=== PATIENT | female | born 1985 | race Caucasian/White ===

== ENCOUNTER 2016-04-23 08:54 | Emergency (ER) | payer OTHER, SELFPAY ==
--- NOTE | 2016-04-23 09:59 | EDDOCDS ---
Nurse's Notes [facility] Name: Melissa Mendoza Age: 30 yrs Sex: Female : 1985 Arrival Date: 04/23/2016 Time: 08:54 Bed Family 1 Private MD: NO PRIMARY PHYSICIAN, . Diagnosis: Conjunctivitis Presentation: 04/23 09:03 Presenting complaint: Patient states: Pt presents stating onset of bilateral itchy and dls burning with crusty drainage last night children have same sx. Mechanism of Injury: No Mechanism of Injury. The patient denies any loss of vision. Adult Sepsis Screening: The patient does not have new or worsening altered mentation. Patient's respiratory rate is less than 22. Systolic blood pressure is greater than 100. Patient has a qSOFA score of 0- Negative Sepsis Screen. Suicide/Homicide risk assessment- the patient denies having any suicidal and/or homicidal ideations and does not present with any other emotional, behavioral or mental health complaints. 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 Transition of care: patient was not received from another setting of care. 09:03 Acuity: SUJATA Level 4 dls 09:03 Method Of Arrival: Walkin/Carried/Asstd dls Triage Assessment: 09:05 General: Appears in no apparent distress, well developed, well nourished, well groomed, dls Behavior is cooperative. Pain: Denies pain. HIV screening NA for this visit Offered previously. EENT: Reports bilateral eye irritation. PICKER: 09:05 LMP 04/07/2016 dls Historical: - Allergies: Bactrim; - Home Meds: 1. none - PMHx: none; - PSHx: Tonsillectomy; Adenoidectomy; - Social history: Smoking status: Patient uses tobacco products, light tobacco smoker. No barriers to communication noted, The patient speaks fluent Luxembourgish. - Family history: Not pertinent. - : The pt / caregiver states he / she is not on anticoagulants. Home medication list is obtained from the patient. - Exposure Risk Screening:: None identified. Recent exposure to. Screenin:55 Screening information is obtained from the patient. Fall risk: No risks identified. dsf Assistance ADL's: requires no assistance with activities of daily living. Abuse/DV Screen: The patient / caregiver reports he/she is: not in a situation that causes fear, pain or injury. Nutritional screening: No deficits noted. Advance Directives: Currently, there is no health care proxy. home support is adequate. Assessment: 09:55 General: Appears in no apparent distress, comfortable, Behavior is appropriate for age, dsf cooperative. Neurological: Level of Consciousness is awake, alert. Neurological: EENT: Eyes clear. Sclera/Cornea are clear in left and right eye. Cardiovascular: No deficits noted. Respiratory: No deficits noted. Derm: Skin is pink, warm & dry. Vital Signs: 08:56 BP 144 / 84; Pulse 90; Resp 18; Temp 97.6(O); Pulse Ox 99% on R/A; Weight 69.85 kg (R); ct3 Height 4 ft. 10 in. (147.32 cm) (R); Pain 0/10; 08:56 Body Mass Index 32.19 (69.85 kg, 147.32 cm) ct3 Vitals: 08:56 Log In Time: April 23, 2016 at 08:53. ct3 Visual Acuity: 09:57 ; deffered by provider dsf ED Course: 08:55 Patient visited by Maura Lake PCA. ct3 08:55 Patient moved to Waiting ct3 08:56 NO PRIMARY PHYSICIAN, . is Private Physician. ct3 08:57 Patient moved to Pre RCE ct3 09:04 Triage Initiated dls 09:09 Dale Trinidad PA-C is PHCP. cc10 09:09 Brooke Marcos MD is Attending Physician. cc10 09:17 Patient moved to Family 1 dls 09:30 Patient visited by Dale Trinidad PA-C. cc10 09:30 Patient visited by Dale Trinidad PA-C. cc10 09:38 [facility] is Referral Physician. cc10 09:57 The patient / caregiver is instructed regarding the plan of care and ED course. dsf 09:57 No IV's were initiated during this patient's visit. No procedures done that require dsf assistance. Order Results: There are currently no results for this order. Outcome: 09:39 Discharge ordered by Provider. cc10 09:57 Discharge Assessment: Patient awake, alert and oriented x 3. No cognitive and/or dsf functional deficits noted. Patient verbalized understanding of disposition instructions. patient administered narcotics - no. The following High Risk Discharge criteria are identified: None. Discharged to home ambulatory. Condition: stable. Discharge instructions given to patient, Instructed on discharge instructions, follow up and referral plans. medication usage, Demonstrated understanding of instructions, medications, Pt was receptive of discharge instructions/ teaching. Prescriptions given X 1, Work note provided to patient. No special radiology studies were completed. Property :Personal belongings accompany Pt. 09:58 Patient left the ED. f Signatures: Nicole Martinez RN RN [facility] Maura Lake, RASHIDA RUBBER PRODUCTION MACHINE OPERATOR ct3 Arminda Vazquez RN RN dsf Coniski, Colin, PA-C PA-C cc10 MTDD
--- NOTE | 2016-04-23 09:59 | EDDOCDS ---
Physician Documentation [facility] Name: Melissa Mendoza Age: 30 yrs Sex: Female : 1985 Arrival Date: 04/23/2016 Time: 08:54 Bed Family 1 Private MD: NO PRIMARY PHYSICIAN, . Disposition: 04/23/16 09:39 Discharged to Home/Self Care. Impression: Conjunctivitis. - Condition is Stable. - Discharge Instructions: Eye - Viral Conjunctivitis. - Prescriptions for Naphcon- A 0.025-0.3 % Ophthalmic Drops - instill 1 drop by OPHTHALMIC route 2-4 times daily; 1 bottle. - Medication Reconciliation, Work Release Form - 1 day form. - Follow up: Emergency Department; When: As needed. Follow up: [facility]; When: Call to arrange an appointment; Reason: Recheck today's complaints, Continuance of care, To establish care. - Problem is new. - Symptoms are unchanged. Historical: - Allergies: Bactrim; - Home Meds: 1. none - PMHx: none; - PSHx: Tonsillectomy; Adenoidectomy; - Social history: Smoking status: Patient uses tobacco products, light tobacco smoker. No barriers to communication noted, The patient speaks fluent Yakut. - Family history: Not pertinent. - : The pt / caregiver states he / she is not on anticoagulants. Home medication list is obtained from the patient. - Exposure Risk Screening:: None identified. Recent exposure to. RN VISITING: 04/23 09:05 LMP 04/07/2016 dls Vital Signs: 08:56 BP 144 / 84; Pulse 90; Resp 18; Temp 97.6(O); Pulse Ox 99% on R/A; Weight 69.85 kg / ct3 153.99 lbs (R); Height 4 ft. 10 in. (147.32 cm) (R); Pain 0/10; 08:56 Body Mass Index 32.19 (69.85 kg, 147.32 cm) ct3 Visual Acuity: 09:57 ; deffered by provider hitesh MDM: 09:41 Financial registration complete. lg Signatures: Nicole Martinez RN RN dls Maxx Bird, Juan Reg Arminda Gray RN RN dsf Dale Trinidad PA-C PA-C cc10 MTDD
--- NOTE | 2016-04-25 10:59 | EDDOCDS ---
Physician Documentation [facility] Name: Melissa Downey Age: 30 yrs Sex: Female : 1985 Arrival Date: 04/23/2016 Time: 08:54 Bed Family 1 Private MD: NO PRIMARY PHYSICIAN, . Disposition: 04/23/16 09:39 Discharged to Home/Self Care. Impression: Conjunctivitis. - Condition is Stable. - Discharge Instructions: Eye - Viral Conjunctivitis. - Prescriptions for Naphcon- A 0.025-0.3 % Ophthalmic Drops - instill 1 drop by OPHTHALMIC route 2-4 times daily; 1 bottle. - Medication Reconciliation, Work Release Form - 1 day form. - Follow up: Emergency Department; When: As needed. Follow up: [facility]; When: Call to arrange an appointment; Reason: Recheck today's complaints, Continuance of care, To establish care. - Problem is new. - Symptoms are unchanged. Historical: - Allergies: Bactrim; - Home Meds: 1. none - PMHx: none; - PSHx: Tonsillectomy; Adenoidectomy; - Social history: Smoking status: Patient uses tobacco products, light tobacco smoker. No barriers to communication noted, The patient speaks fluent Indonesian. - Family history: Not pertinent. - : The pt / caregiver states he / she is not on anticoagulants. Home medication list is obtained from the patient. - Exposure Risk Screening:: None identified. Recent exposure to. CT MRI TECHNOLOGIST: 04/23 09:05 LMP 04/07/2016 dls Vital Signs: 08:56 BP 144 / 84; Pulse 90; Resp 18; Temp 97.6(O); Pulse Ox 99% on R/A; Weight 69.85 kg / ct3 153.99 lbs (R); Height 4 ft. 10 in. (147.32 cm) (R); Pain 0/10; 08:56 Body Mass Index 32.19 (69.85 kg, 147.32 cm) ct3 Visual Acuity: 09:57 ; deffered by provider dsf MDM: 09:41 Financial registration complete. lg 12:10 [facility] Payment Agreement was scanned into [employer] and attached to record. lg 04/24 11:39 T-Sheet-- Draft Copy was scanned into [employer] and attached to record. gb Signatures: Nicole Martinez, RN RN dls Yesenia Meehan, Reg Reg gb Maxx Bird, Reg Reg lg Arminda Vazquez RN RN dsf Coniski, Colin, MIGUEL PAPatricia cc10 The chart was reviewed and I authenticate all verbal orders and agree with the evaluation and treatment provided.Attachments: 04/23 12:10 [facility] [place] Agreement lg 04/24 11:39 T-Sheet-- Draft Copy gb Chart Complete MTDD
--- NOTE | 2016-04-25 10:59 | EDDOCDS ---
Physician Documentation [facility] Name: Melissa Downey Age: 30 yrs Sex: Female : 1985 Arrival Date: 04/23/2016 Time: 08:54 Bed Family 1 Private MD: NO PRIMARY PHYSICIAN, . Disposition: 04/23/16 09:39 Discharged to Home/Self Care. Impression: Conjunctivitis. - Condition is Stable. - Discharge Instructions: Eye - Viral Conjunctivitis. - Prescriptions for Naphcon- A 0.025-0.3 % Ophthalmic Drops - instill 1 drop by OPHTHALMIC route 2-4 times daily; 1 bottle. - Medication Reconciliation, Work Release Form - 1 day form. - Follow up: Emergency Department; When: As needed. Follow up: [facility]; When: Call to arrange an appointment; Reason: Recheck today's complaints, Continuance of care, To establish care. - Problem is new. - Symptoms are unchanged. Historical: - Allergies: Bactrim; - Home Meds: 1. none - PMHx: none; - PSHx: Tonsillectomy; Adenoidectomy; - Social history: Smoking status: Patient uses tobacco products, light tobacco smoker. No barriers to communication noted, The patient speaks fluent Khmer. - Family history: Not pertinent. - : The pt / caregiver states he / she is not on anticoagulants. Home medication list is obtained from the patient. - Exposure Risk Screening:: None identified. Recent exposure to. 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 10 in. (147.32 cm) (R); Pain 0/10; 08:56 Body Mass Index 32.19 (69.85 kg, 147.32 cm) ct3 Visual Acuity: 09:57 ; deffered by provider dsf MDM: 09:41 Financial registration complete. lg 12:10 [facility] Payment Agreement was scanned into [employer] and attached to record. lg 04/24 11:39 T-Sheet-- Draft Copy was scanned into [employer] and attached to record. gb Signatures: Nicole Martinez, RN RN dls Yesenia Meehan, Reg Reg gb Maxx Bird, Reg Reg lg Arminda Vazquez RN RN dsf Coniski, Colin, MIGUEL PAPatricia cc10 The chart was reviewed and I authenticate all verbal orders and agree with the evaluation and treatment provided.Attachments: 04/23 12:10 [facility] [place] lg 04/24 11:39 T-Sheet-- Draft Copy gb Chart Complete MTDD
--- NOTE | 2016-04-25 10:59 | EDDOCDS ---
Nurse's Notes [facility] Name: Melissa Downey Age: 30 yrs Sex: Female : 1985 Arrival Date: 04/23/2016 Time: 08:54 Bed Family 1 Private MD: NO PRIMARY PHYSICIAN, . Diagnosis: Conjunctivitis Presentation: 04/23 09:03 Presenting complaint: Patient states: Pt presents stating onset of bilateral itchy and dls burning with crusty drainage last night children have same sx. Mechanism of Injury: No Mechanism of Injury. The patient denies any loss of vision. Adult Sepsis Screening: The patient does not have new or worsening altered mentation. Patient's respiratory rate is less than 22. Systolic blood pressure is greater than 100. Patient has a qSOFA score of 0- Negative Sepsis Screen. Suicide/Homicide risk assessment- the patient denies having any suicidal and/or homicidal ideations and does not present with any other emotional, behavioral or mental health complaints. Status: Patient is not a emergency medical service coordinator or dependent. Transition of care: patient was not received from another setting of care. 09:03 Acuity: SUJATA Level 4 dls 09:03 Method Of Arrival: Walkin/Carried/Asstd dls Triage Assessment: 09:05 General: Appears in no apparent distress, well developed, well nourished, well groomed, dls Behavior is cooperative. Pain: Denies pain. HIV screening NA for this visit Offered previously. EENT: Reports bilateral eye irritation. 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 none - PMHx: none; - PSHx: Tonsillectomy; Adenoidectomy; - Social history: Smoking status: Patient uses tobacco products, light tobacco smoker. No barriers to communication noted, The patient speaks fluent Anguillan. - Family history: Not pertinent. - : The pt / caregiver states he / she is not on anticoagulants. Home medication list is obtained from the patient. - Exposure Risk Screening:: None identified. Recent exposure to. Screenin:55 Screening information is obtained from the patient. Fall risk: No risks identified. dsf Assistance ADL's: requires no assistance with activities of daily living. Abuse/DV Screen: The patient / caregiver reports he/she is: not in a situation that causes fear, pain or injury. Nutritional screening: No deficits noted. Advance Directives: Currently, there is no health care proxy. home support is adequate. Assessment: 09:55 General: Appears in no apparent distress, comfortable, Behavior is appropriate for age, dsf cooperative. Neurological: Level of Consciousness is awake, alert. Neurological: EENT: Eyes clear. Sclera/Cornea are clear in left and right eye. Cardiovascular: No deficits noted. Respiratory: No deficits noted. Derm: Skin is pink, warm & dry. Vital Signs: 08:56 BP 144 / 84; Pulse 90; Resp 18; Temp 97.6(O); Pulse Ox 99% on R/A; Weight 69.85 kg (R); ct3 Height 4 ft. 10 in. (147.32 cm) (R); Pain 0/10; 08:56 Body Mass Index 32.19 (69.85 kg, 147.32 cm) ct3 Vitals: 08:56 Log In Time: April 23, 2016 at 08:53. ct3 Visual Acuity: 09:57 ; deffered by provider dsf ED Course: 08:55 Patient visited by Maura Lake PCA. ct3 08:55 Patient moved to Waiting ct3 08:56 NO PRIMARY PHYSICIAN, . is Private Physician. ct3 08:57 Patient moved to Pre RCE ct3 09:04 Triage Initiated dls 09:09 Dale Trinidad PA-C is PHCP. cc10 09:09 Brooke Marcos MD is Attending Physician. cc10 09:17 Patient moved to Family 1 dls 09:30 Patient visited by Dale Trinidad PA-C. cc10 09:30 Patient visited by Dale Trinidad PA-C. cc10 09:38 [facility] is Referral Physician. cc10 09:57 The patient / caregiver is instructed regarding the plan of care and ED course. dsf 09:57 No IV's were initiated during this patient's visit. No procedures done that require dsf assistance. 11:54 Patient name changed from Melissa\S\\S\Reji\S\ to Melissa\S\ \S\Downey. EDMS 12:10 [facility] Payment Agreement was scanned into [employer] and attached to record. lg 12:35 Patient name changed from Melissa\S\ \S\Downey\S\ to Melissa\S\Tre\S\Downey. EDMS 04/24 11:39 T-Sheet-- Draft Copy was scanned into [employer] and attached to record. 15:09 Patient name changed from Melissa\S\Tre\S\Downey\S\ to Aspen\S\Tre\S\Downey. EDMS 04/25 07:34 Patient name changed from Aspen\S\Tre\S\Doweny\S\ to Melissa\S\Tre\S\Downey. EDMS Order Results: There are currently no results for this order. Outcome: 04/23 09:39 Discharge ordered by Provider. cc10 09:57 Discharge Assessment: Patient awake, alert and oriented x 3. No cognitive and/or dsf functional deficits noted. Patient verbalized understanding of disposition instructions. patient administered narcotics - no. The following High Risk Discharge criteria are identified: None. Discharged to home ambulatory. Condition: stable. Discharge instructions given to patient, Instructed on discharge instructions, follow up and referral plans. medication usage, Demonstrated understanding of instructions, medications, Pt was receptive of discharge instructions/ teaching. Prescriptions given X 1, Work note provided to patient. No special radiology studies were completed. Property :Personal belongings accompany Pt. 09:58 Patient left the ED. dsf Signatures: Dis[facility] Nicole Martinez RN RN [facility] Yesenia Meehan, Reg Reg gb Maxx Bird, Reg Reg lg Maura Lake, MORTUARY OPERATIONS MANAGER MORTUARY OPERATIONS MANAGER ct3 Arminda Vazquez RN RN dsf Dale Trinidad, PA-C PA-C cc10 Chart Complete MTDD
== END 2016-04-23 09:58 | disposition home or self-care (01) ==
LOC: M ED 08:54
DX: B30.9 Viral conjunctivitis, unspecified (principal); Z88.1 Allergy status to other antibiotic agents; F17.210 Nicotine dependence, cigarettes, uncomplicated